=== PATIENT | female | born 1970 | race Caucasian/White ===

== ENCOUNTER 2018-05-07 21:05 | Emergency (ER) | payer MEDICAID ==
[~2018-05-07] VITALS: Ht 172.7 cm; Wt 115.5 kg
[~2018-05-07 21:05] MED LIST: HYDR-4383 PO; NAPR-1144 PO; SYN0.088T PO
[2018-05-07 21:10] VITALS: BP 127/81
[2018-05-07] MEDS ORDERED: CLIN150C2 PO (23:10)
[2018-05-07] MEDS ORDERED: ketorolac trometh inj. 60 MG/2 ML VIAL IM ONE (23:10)
== END 2018-05-07 23:24 | disposition home or self-care (01) ==
LOC: ER 21:06
DX: K04.7 Periapical abscess without sinus (principal); G89.29 Other chronic pain; Z88.0 Allergy status to penicillin; Z79.899 Other long term (current) drug therapy; Z56.0 Unemployment, unspecified; Z59.0 Homelessness
CPT/HCPCS: 96372; 99283; J1885

== ENCOUNTER 2018-06-13 12:00 | Emergency (ER) | payer MEDICAID ==
[~2018-06-13] VITALS: Ht 172.7 cm; Wt 116.5 kg
[2018-06-13 12:09] VITALS: BP 139/91
[2018-06-13] MEDS ORDERED: LEVO137T2 PO (12:29)
== END 2018-06-13 12:37 | disposition home or self-care (01) ==
LOC: ER 12:00
DX: E03.9 Hypothyroidism, unspecified (principal); Z76.0 Encounter for issue of repeat prescription; G89.29 Other chronic pain; Z88.0 Allergy status to penicillin; Z79.899 Other long term (current) drug therapy; Z59.0 Homelessness; Z56.0 Unemployment, unspecified
CPT/HCPCS: 99283

== ENCOUNTER 2018-12-21 09:47 | Emergency (ER) | payer MEDICAID ==
[~2018-12-21] VITALS: Ht 172.7 cm; Wt 113.6 kg
[~2018-12-21 09:47] MED LIST changes: +LEVO137T2 PO
[2018-12-21 09:54] VITALS: BP 140/88
[2018-12-21] MEDS ORDERED: MUPI22OI30 TOP (10:30)
== END 2018-12-21 10:43 | disposition home or self-care (01) ==
LOC: ER 09:48
DX: L72.3 Sebaceous cyst (principal); G89.29 Other chronic pain; Z88.0 Allergy status to penicillin; Z79.899 Other long term (current) drug therapy; Z59.0 Homelessness; Z56.0 Unemployment, unspecified
CPT/HCPCS: 99284

== ENCOUNTER 2025-01-09 18:45 | Emergency (ER) | payer MEDICAID ==
[~2025-01-09] VITALS: Ht 172.7 cm; Wt 130.6 kg
--- NOTE | 2025-01-09 19:09 | Physician Documentation ---
HPI ~ General Chief Complaint: Tooth Problem Stated Complaint: TOOTH PAIN Time Seen by MD: 18:56 Primary Medical Doctor: [facility] History of Present Illness HPI Comment This is a 54-year-old female who presents with one-week of progressively worsening left-sided upper and lower dental pain without facial swelling or fever. Reports no difficulty breathing or swallowing. Patient reports she does have a dentist that she is able to follow up with. Medication Reconciliation Allergies: Coded Allergies: Penicillins (Verified Allergy, Unknown, 01/21/18) Scheduled Clindamycin HCl (Clindamycin HCl), 3 CAP PO Q8H Hydrocodone/Acetaminophen ([place] 5-325 Tablet), 1 TABLET PO Q6H Ibuprofen (Ibuprofen), 1 TAB PO Q8H Levothyroxine Sodium (Levothyroxine Sodium), 1 TAB PO DAILY Levothyroxine Sodium* (Synthroid*), 137 MCG PO DAILY, (Reported) Naproxen Sodium (Naproxen Sodium), 1 TAB PO Q12H Past Medical History Past Medical History: Chronic Pain Past Surgical History: no surgical history Other Past Family History: none Alcohol Use: Occasionally Drug Use: none Lives with: S/O Lives In: Homeless Occupation: unemployed Review of Systems ROS As stated above in the HPI, otherwise all systems are reviewed and negative. Physical Exam Vital Signs: Temperature: 98.5, Source: Temporal, Heart Rate: 69, Respiratory Rate: 16, BP: 179/93, Pulse Oximetry: 97, Weight: 130.550 Oxygen Flow Rate: 0 Physical Exam VITALS: Reviewed and as above. GENERAL: Alert, nontoxic appearing, no apparent distress. HEENT: Broken and severely decayed rear lower molar, broken and severely decayed 1st upper premolar, no surrounding he asked her where erythema or swelling, no submandibular swelling or tongue elevation, no drooling, uvula midline, no tonsillar swelling RESPIRATORY: No increased work of breathing, no respiratory distress, speaking in full clear sentences Progress Results/Orders Results/Orders Completed Orders - MARIAMA STAFFORD Ketorolac Trometh 15mg/Ml Vial (Toradol (01/09/25 19:15) Clindamycin Capsule (Cleocin Capsule) (01/09/25 19:15) Medications Received in ER Medications (Trade) Dose Ordered Sig/Ute Route PRN Reason Start Time Stop Time Status Last Admin Dose Admin (Toradol injection) 15 mg ONCE ONCE IM 6/17/25 19:15 01/09/25 19:18 DC 01/09/25 19:26 15 MG (Cleocin capsule) 450 mg ONCE ONCE PO 01/09/25 19:15 01/09/25 19:17 DC 01/09/25 19:24 450 MG Vital Signs 01/09/25 01/09/25 18:49 19:28 Temp 98.5 98.6 Pulse 69 68 Resp 16 18 B/P (MAP) 179/93 175/90 Pulse Ox 97 99 O2 Flow Rate 0 Medical Decision Making Findings This well appearing 54-year-old female presented with dental pain to the left upper premolar and lower rear molar. Physical exam demonstrated broken and severely decayed teeth. Based on history and physical exam I have low clinical suspicion for peritonsillar abscess, uvulitis, deep tissue space infection of the head/neck, or impending airway compromise. There was no submandibular swelling or elevation of the tongue, the uvula was midline, patient is able to swallow fluids and secretion without difficulty, there is no increased work of breathing or noisy breathing. Based on presentation I am concerned for odontogenic infection and antibiotic treatment with clindamycin is indicated Pain control with non-narcotic medications is appropriate at this time. It is reassuring patient has a dentist she can follow up with, she has been instructed to follow up soon as possible with a dentist which she verbalized understanding of. Patient is otherwise well-appearing with remainder of physical exam benign, patient appropriate for outpatient follow up. Patient provided careful return to care precautions which he verbalized understanding of. Differential Dx:Considerations: Include: Alveolar fracture, ANUG, Facial Cellulitis, Periapical abscess, Peridontal abscess, Tooth avulsion, Tooth eruption, Tooth Fracture Departure Disposition: 01 HOME / SELF CARE / HOMELESS Impression: Primary Impression: Toothache Condition: Improved Discharge Instructions: Dental Pain Additional Instructions: Please follow up with a dentist as soon as possible for definitive management of your tooth pain. Please take the antibiotics as prescribed, you may use the prescribed ibuprofen as needed for pain according to the prescribed directions, do not take this medication for the next 12 hours as you received a shot of Toradol in the emergency department which are replace ibuprofen and other NSAIDs, take ibuprofen with food to avoid stomach upset. You may also use Tylenol as needed for pain as directed by [id number] packaging in combination with the prescribed ibuprofen for breakthrough pain. Please also follow up with your primary care provider in the next few days. Please return to the emergency department for any new or worsening concerning symptoms including but not limited to if you develop a fever or if you have difficulty breathing or swallowing. Referrals: NO PRIMARY CARE PROVIDER (PCP) Prescriptions Ibuprofen (Ibuprofen) 800 Mg Tablet 1 TAB PO Q8H for pain for 10 Days, #30 TAB 0 Refills Prov: MARIAMA STAFFORD 01/09/25 Clindamycin HCl (Clindamycin HCl) 150 Mg Capsule 3 CAP PO Q8H for 7 Days, #63 CAP Prov: MARIAMA STAFFORD 01/09/25 Education Educated: Patient Educated regarding: diagnosis, treatment, prognosis, need for follow up Signature Scribe Signature: No scribe Attestation: The note accurately reflects work and decisions made by me.WOO Garcia 01/10/25 02:08 MARIAMA STAFFORD Jan 09, 2025 19:09
[2025-01-09] MEDS ORDERED: [UNRECOGNIZED DRUG - CODE] PO (19:14)
[2025-01-09] MEDS ORDERED: IBUP-1986 PO (19:14)
[2025-01-09] MEDS: clindamycin 150mg capsule PO ONE (19:24)
[2025-01-09] MEDS: ketorolac trometh 15mg/ml vial 15 MG/ML ML IM ONE (19:26)
[2025-01-09 19:28] VITALS: BP 175/90; PULSE 68; RESP 18; TEMP 98.6; O2SAT 99
== END 2025-01-09 19:29 | disposition home or self-care (01) ==
LOC: ER 18:46
DX: K08.89 Other specified disorders of teeth and supporting structures (principal); Z88.0 Allergy status to penicillin; Z79.899 Other long term (current) drug therapy; Z72.89 Other problems related to lifestyle; Z56.0 Unemployment, unspecified; Z59.00 Homelessness unspecified
CPT/HCPCS: 96372; 99283; J1885